=== PATIENT | male | born 1980 | race Caucasian/White ===

== ENCOUNTER 2019-11-21 22:30 | Emergency (ER) | payer BC, SELFPAY ==
[2019-11-21 22:36] VITALS: BP 212/130; PULSE 90; RESP 18; TEMP 37.1; O2SAT 97; BMI 34.9
--- NOTE | 2019-11-21 22:49 | ED_ITS ---
Entered by Leesa Meléndez, acting as scribe for Kenia Arreola Wendie Nov 21, 2019 22:30 HPI - Extremity Problem General: Chief complaint: Extremity Injury, Upper Stated complaint: elbow pain Time Seen by Provider: 11/21/19 22:50 Source: patient and family Mode of arrival: ambulatory History of Present Illness: HPI Narrative: 39 y/o male presents to the ED with complaint of right elbow pain. Pt states he slipped and fell and landed on it. Pt is unable to move his right arm at all. He has pain that radiates into the right wrist. MD Complaint: extremity pain and extremity swelling Onset (ago): hour(s) Pain Consistency: constant Location: right and upper extremity Radiation: distal Relieving factors: nothing Exacerbating factors: range of motion Associated symptoms: Deny chest pain, fever(s) or rash Review of Systems Const: Denies: fever, chills, body aches, fatigue, malaise or diaphoresis Eyes: Denies: change in vision or blurry vision ENMT: Denies: throat pain, painful swallowing, hoarseness, ear pain, ear discharge, Change in hearing or nasal discharge Card: Denies: chest pain, palpitations, irregular heart rhythm, syncope, pre- syncope, shortness of breath on exertion or shortness of breath when lying down Resp: Denies: shortness of breath, productive cough, non-productive cough, wheezing, coughing up blood or chest congestion GI: Denies: abdominal pain, nausea, vomiting, vomiting blood, coffee grounds in vomit, diarrhea, constipation, cramping, blood in stool or black tarry stool : Denies: flank pain, difficulty urinating, painful urination, urinary frequency, urinary urgency, decreased urine ouput, urinary incontinence or blood in urine Musc: Reports: other (see HPI) Skin/Breast: Denies: rash, skin tenderness or yellow skin Neuro: Denies: headache, numbness in extremities, weakness in extremities, changes in sensation, lack of coordination, difficulty walking, dizziness, vertigo or confusion Endo: Denies: excessive thirst, tired all the time, cold intolerance, excessive sweating, flushing or hot flashes Zbigniew/Lymph: Denies: easy bruising, easy bleeding, petechiae or enlarged lymph nodes All/Imm: Denies: hives, throat swelling, tongue swelling, facial swelling or acute wheezing PFSH ED PFSH: Statuses (acute, chronic, etc) shown below reflect problem list status as previously entered and may not be historically accurate Social History Smoking and tobacco status: never smoked Physical Exam Const: COMMON NORMALS: no apparent distress, oriented x3, no limitations, healthy appearing and well nourished EXAM LIMITATIONS: no altered mental status GENERAL APPEARANCE: cooperative, well kempt and well developed ORIENTATION/CONSCIOUSNESS: Yes awake HENMT: COMMON NORMALS: normocephalic, head/scalp atraumatic, hearing grossly normal bilaterally, external ears normal, EAC's normal, external nose normal and moist oral mucous membranes HEAD & SCALP: normal to inspection, normocephalic and atraumatic FACE & SINUS: normal facial exam and face symmetric NOSE: external nose normal and nares normal EXTERNAL EAR: Yes external ears normal EXTERNAL AUDITORY CANAL: EAC's normal MOUTH: oral and palatal mucosa normal and tongue normal Eye: COMMON NORMALS: PERRL, EOMs intact bilaterally, conjunctivae normal and no scleral icterus GENERAL EYE: normal appearance of both eyes and normal light reflex CONJUNCTIVA: Yes conjunctivae normal SCLERA: sclerae normal CORNEA: Yes corneas normal PUPIL: Yes PERRL DIRECT OPHTHALMOSCOPY: Yes normal light reflex Neck/C-Spine: COMMON NORMALS: full ROM, no lymphadenopathy, supple, no meningeal signs and no JVD GENERAL: Yes normal visual inspection and Yes trachea midline CERVICAL SPINE: Yes cervical ROM normal Chest: COMMONS NORMALS: inspection of chest normal and palpation of chest normal Resp: COMMON NORMALS: normal respiratory effort, no retractions, no use of accessory muscles and clear to auscultation bilaterally EFFORT & INSPECTION: Yes able to speak in complete sentences AUSCULTATION: clear to auscultation bilaterally Cardio: COMMON NORMALS: no JVD, regular rate, regular rhythm, S1 normal heart sound, S2 normal heart sound, no gallops, no clicks, no murmurs and no rub JUGULAR VENOUS DISTENTION: no JVD RATE: regular rate RHYTHM: regular rhythm HEART SOUNDS: S1 normal and S2 normal GI: COMMON NORMALS: soft to palpation, non-tender, no hepatosplenomegaly and no masses INSPECTION: Yes normal to inspection PALPATION: Yes soft and Yes no hepatosplenomegaly : COMMON NORMALS: Yes no CVA tenderness BLADDER/KIDNEY EXAM: Yes no CVA tenderness Back/Pelvis: COMMON NORMALS: no CVA tenderness, thoracic and lumbar spine normal to inspection, no thoracic nor lumbar tenderness and thoraco-lumbar ROM normal Neuro: COMMON NORMALS: oriented x3, CN's II-XII intact bilaterally, moves all extremities, no focal motor deficits and no sensory deficits noted MENINGEAL SIGNS: Yes no meningeal signs Psych: COMMON NORMALS: mental status grossly normal, thought process normal, cooperative, affect normal, speech normal and activity/motor behavior normal APPEARANCE: Yes well kempt SPEECH: Yes normal speech THOUGHT PROCESS: normal thought process Skin: COMMON NORMALS: no rashes or lesions noted, skin turgor normal, no jaundice, no petechiae and no mottling GENERAL SKIN EXAM: no rashes or lesions noted and turgor normal Course Vital Signs: Vital signs: Vital Signs Temperature 98.1 F 11/22/19 01:35 Pulse Rate 94 11/22/19 01:35 Respiratory Rate 16 11/22/19 01:35 Blood Pressure 173/112 11/22/19 01:35 Pulse Oximetry 93 11/22/19 01:35 MDM - Extremity (Nontraumatic) MDM Narrative: Medical decision making narrative: All of the patient's right sided extremity x-rays are normal. He is not able to freely move his elbow. I believe he just has a significant hematoma. Patient agrees to return should his symptoms change or worsen but at this time he is ready to be discharged. Discharge Plan Discharge Patient Disposition: Home, Self-Care Clinical Impression: Hematoma Contusion Qualifiers: Encounter type: initial encounter Contusion area: elbow Laterality: right Qualified Code(s): S50.01XA - Contusion of right elbow, initial encounter Condition: Stable Discharge Orders: Discharge Order (Routine); Ordered 11/22/19 Ordered By: Kenia Arreola Referrals: [facility] [Other] Dmitriy Moreno DO [Family Provider] - Feroz Duran MD [Physician] - 4-7 days Discharge Diet: Advance as tolerated Discharge Activity: Increase activity as tolerated Patient Instructions: Contusion in Adults (ED) Activity Restrictions/Additional Instructions: Please return to the ER immediately for any of the signs or symptoms listed on your discharge instruction sheets, worsening/changing of your symptoms, you are not getting better as quickly as expected, or for ANY other cause or concerns. Stand Alone Forms: Work/School Release Discharge Date/Time: 11/22/19 01:37 Coding Level of Care Code ED Patient Care Specialist for Chg Fwd Exam Problem Focused The documentation recorded by the charlieibMedhat lawler Ashley, accurately reflects the service I personally performed and the decisions made by , Kenia Arreola Nov 21, 2019 22:30
--- NOTE | 2019-11-21 22:50 | XR_ITS ---
WS: [id number] RIGHT WRIST: 3 VIEW(S) TECHNIQUE: PA, oblique and lateral. HISTORY: INJURY COMPARISON: None available. No acute fracture or dislocation. No joint space abnormality. No soft tissue swelling. XR/XR wrist RT min 3V* [id number] IMPRESSION: Negative RIGHT wrist.
--- NOTE | 2019-11-21 22:50 | XR_ITS ---
WS: [id number] RIGHT HAND: 3 VIEW(S) TECHNIQUE: PA, oblique and lateral. HISTORY: INJURY COMPARISON: None available. No acute fracture or dislocation. Small concave defect in the lateral scaphoid is probably degenerative in nature. No acute fractures. Mild soft tissue swelling over the dorsum of the hand. XR/XR hand RT min 3V* [id number] IMPRESSION: No fracture identified.
--- NOTE | 2019-11-21 22:50 | XR_ITS ---
WS: [id number] RIGHT FOREARM 2 VIEWS HISTORY: INJURY COMPARISON: None available. No fracture or dislocation. No foreign body or joint effusion. XR/XR forearm RT 2V [id number] IMPRESSION: Normal RIGHT forearm.
--- NOTE | 2019-11-21 22:54 | XRR_ITS ---
PROCEDURE INFORMATION: Exam: XR Right Elbow Exam date and time: 11/21/2019 11:22 PM Age: 39 years old Clinical indication: Injury or trauma; Initial encounter; Blunt trauma (contusions or hematomas; Elbow; Right; Patient HX: Fall on ice TECHNIQUE: Imaging protocol: XR Right elbow. Views: 3 or more views. COMPARISON: No relevant prior studies available. FINDINGS: Bones/joints: Normal. Soft tissues: Normal. XR/XR elbow RT min 3V* [id number] IMPRESSION: Negative for fracture or dislocation.
[2019-11-21] MEDS: ondansetron 2 mg/ML SDV 2 mL 4 MG IVP (23:09)
[2019-11-21 23:11] VITALS: RESP 18
[2019-11-21] MEDS: morphine 4 mg/mL SDV 1 mL IVP (23:11)
--- NOTE | 2019-11-21 23:31 | XRR_ITS ---
PROCEDURE INFORMATION: Exam: XR Right Humerus Exam date and time: 11/21/2019 11:32 PM Age: 39 years old Clinical indication: Injury or trauma; Fall; Initial encounter; Blunt trauma (contusions or hematomas; Arm, upper; Right TECHNIQUE: Imaging protocol: XR Right humerus Views: 2 or more views. COMPARISON: CR XR elbow RT min 3V* [id number] 11/21/2019 11:07 PM FINDINGS: Bones/joints: Normal. Soft tissues: Normal. XR/[place] [id number] IMPRESSION: Negative for fracture or dislocation.
[2019-11-22 01:35] VITALS: BP 173/112; PULSE 94; RESP 16; TEMP 36.7; O2SAT 93
== END 2019-11-22 01:37 | disposition home or self-care (01) ==
PROVIDERS: Emergency Provider Emergency Medicine; Family Provider Family Medicine; PCP Nurse Practitioner Family
DX: S50.01XA Contusion of right elbow, initial encounter (principal); W01.0XXA Fall on same level from slipping, tripping and stumbling without subsequent striking against object, initial encounter
CPT/HCPCS: 73060; 73080; 73090; 73110; 73130; 96374; 99281; J2270; J2405

== ENCOUNTER 2025-07-26 16:45 | Outpatient (CLI) | payer MEDICAID, SELFPAY ==
--- NOTE | 2025-07-26 16:52 | US_ITS ---
WS: [id number] RENAL ULTRASOUND HISTORY: STAGE 3 CKD COMPARISON: CT 03/19/2009 TECHNIQUE: 2-D and color Doppler imaging of the kidney submitted. Right kidney: 8.5 cm x 4.1 cm x 4.9 cm. Cortex: 1.4 cm Mild atrophy RIGHT kidney. No hydronephrosis. Cortical cyst upper pole 1.8 x 2.0 x 1.2 cm. No solid mass. There is marked increased echogenicity of the kidney. Left kidney: 8.5 cm x 4.4 cm x 4.8 cm. Cortex: 1.5 cm Mild atrophy RIGHT kidney. No hydronephrosis. LEFT kidney is very difficult to visualize predominately due to body habitus with diffuse increased echogenicity and loss of the normal cortical medullary differentiation. Cyst has been previously described in the RIGHT kidney. This was poorly visualized on today's exam. Aorta: Normal. Urinary Bladder: Normal distention. US/US renal BI* [id number] IMPRESSION: 1. Mild atrophy of each kidney. Atrophy is new since the prior CT of 2008. Kid neys were normal size on that CT examination. 2. No hydronephrosis. 3. Marked increased echogenicity with loss of the normal cortical measured dif ferentiation from chronic medical renal disease. 4. LEFT kidney is poorly visualized. Cyst has been previously described which is not well identified today. It would be difficult to exclude a solid mass. 5. Cortical cyst RIGHT kidney.
== END 2025-07-26 16:46 | disposition home or self-care (01) ==
LOC: RAD 16:48
PROVIDERS: PCP Internal Medicine; Visit Provider Internal Medicine Nephrology
DX: N18.32 Chronic kidney disease, stage 3b (principal)
CPT/HCPCS: 76770